=== PATIENT | female | born 1980 | race Caucasian/White ===

== ENCOUNTER 2016-04-27 08:32 | Outpatient (CLI) | payer OTHER ==
[~2016-04-27] VITALS: Ht 167.6 cm; Wt 135.9 kg
[2016-04-27 09:22] VITALS: BP 115/79
[2016-04-30] MEDS ORDERED: PREN1TAB60 PO (22:09)
[2016-04-30] MEDS ORDERED: LEVO200T5 PO (22:09)
[2016-04-30] MEDS ORDERED: METF10002 PO (23:34)
[2016-04-30] MEDS ORDERED: iron PO (23:34)
[2016-05-04] MEDS ORDERED: IBUP-1222 PO (08:35)
[2016-05-04] MEDS ORDERED: OXYC-302 PO (08:37)
[2016-05-04] MEDS ORDERED: DOCU-30 PO (08:39)
== END 2016-04-27 10:00 | disposition home or self-care (01) ==
LOC: LDOP 08:32 → EDSTATUS 04-30 08:32
PROVIDERS: ATTEND Obstetrics & Gynecology
DX: O36.8130 Decreased fetal movements, third trimester, not applicable or unspecified (principal); O99.283 Endocrine, nutritional and metabolic diseases complicating pregnancy, third trimester; E03.9 Hypothyroidism, unspecified; Z3A.39 39 weeks gestation of pregnancy
CPT/HCPCS: 59025; 99201; G0463

== ENCOUNTER → 2016-08-09 | Outpatient (CLI) | payer OTHER ==
[~2016-08-09] MED LIST: DOCU-30 PO; IBUP-1222 PO; LEVO200T5 PO; METF10002 PO; OXYC-302 PO; PREN1TAB60 PO; iron PO
== END | disposition home or self-care (01) ==
LOC: CVU 14:49
PROVIDERS: ATTEND Nurse Practitioner Primary Care
DX: I08.1 Rheumatic disorders of both mitral and tricuspid valves (principal); I37.1 Nonrheumatic pulmonary valve insufficiency; E03.9 Hypothyroidism, unspecified; E55.9 Vitamin D deficiency, unspecified
CPT/HCPCS: 93306

== ENCOUNTER 2016-08-16 11:15 | Inpatient (IN) | payer OTHER ==
[~2016-08-16] VITALS: Ht 167.6 cm; Wt 136.5 kg
[2016-08-16] MEDS ORDERED: RANI150T4 PO (11:28)
[2016-08-16] MEDS ORDERED: SODIUM CHLORIDE 0.9% 1,000ML IVBOLUS ONE ×2 (12:30→14:30)
[2016-08-16] MEDS ORDERED: SODIUM CHLORIDE FLUSH 10ML SYR IVF ONE (12:30)
[2016-08-16 12:56] LABS: BLOOD UREA NITROGEN 12 mg/dL (7-18)
[2016-08-16 12:57] LABS: ASPARTATE AMINO TRANSFERASE 15 U/L (15-37)
[2016-08-16] MEDS ORDERED: CLINDAMYCIN PMX 900MG/50ML 50 ML IV ONE (14:30)
[2016-08-16] MEDS ORDERED: CLINDAMYCIN PMX 900MG/50ML 50 ML ONE (15:01)
[2016-08-16] MEDS ORDERED: HYDROcodone/APAP 5/325 TABLET PO PRN (17:00)
[2016-08-16] MEDS ORDERED: MORPHINE SULFATE 4 MG/ML, 1ML IVPush PRN (17:00)
[2016-08-16] MEDS ORDERED: ACETAMINOPHEN 325 MG TABLET PO PRN (17:00)
[2016-08-16] MEDS ORDERED: TEMAZEPAM 15 MG CAPSULE PO PRN (17:00)
[2016-08-16] MEDS ORDERED: ENALAPRILAT 1.25 MG/ML, 2ML IVPush PRN (17:00)
[2016-08-16] MEDS ORDERED: ONDANSETRON 2MG/ML, 2ML IVPush PRN (17:00)
[2016-08-16] MEDS: SODIUM CHLORIDE 0.9% 1,000 ML IV SCH ×2 (19:53→22:34)
[2016-08-16] MEDS: CEFAZOLIN PMX 1GM/50ML 50 ML IV SCH (19:53)
[2016-08-16] MEDS: KETOROLAC 30 MG/1 ML IVPush SCH ×2 (20:07→23:00)
[2016-08-16 20:59] VITALS: BP 143/89
[2016-08-16 22:57] VITALS: BP 108/71
[2016-08-17] MEDS: CEFAZOLIN PMX 1GM/50ML 50 ML IV SCH ×4 (00:35→20:35)
[2016-08-17] MEDS: KETOROLAC 30 MG/1 ML IVPush SCH ×4 (00:35→14:00)
[2016-08-17] MEDS: SODIUM CHLORIDE 0.9% 1,000 ML IV SCH ×2 (03:55→14:12)
[2016-08-17 04:00] VITALS: BP 129/83
[2016-08-17 05:54] LABS: BLOOD UREA NITROGEN 11 mg/dL (7-18)
[2016-08-17 06:06] LABS: ASPARTATE AMINO TRANSFERASE 10 U/L (15-37)
[2016-08-17 07:50] VITALS: BP 122/81
[2016-08-17] MEDS ORDERED: LEVOTHYROXINE 200 MCG TABLET PO SCH (09:00)
[2016-08-17] MEDS ORDERED: POTASSIUM CHLORIDE 40 MEQ in SODIUM CHLORIDE 0.9% 500 ML IV ONE (10:30)
[2016-08-17 13:05] VITALS: BP 121/76
[2016-08-17] MEDS: KETOROLAC 30 MG/1 ML IVPush PRN ×2 (14:39→20:35)
[2016-08-17 19:25] VITALS: BP 133/88
[2016-08-17] MEDS: LEVOTHYROXINE 175 MCG TABLET PO SCH (20:35)
[2016-08-18 02:18] VITALS: BP 130/87
[2016-08-18] MEDS: KETOROLAC 30 MG/1 ML IVPush PRN ×4 (02:26→22:11)
[2016-08-18] MEDS: CEFAZOLIN PMX 1GM/50ML 50 ML IV SCH ×3 (04:50→20:06)
[2016-08-18 05:53] LABS: BLOOD UREA NITROGEN 12 mg/dL (7-18)
[2016-08-18 07:16] VITALS: BP 136/90
[2016-08-18] MEDS ORDERED: LEVOTHYROXINE 200 MCG TABLET PO SCH (09:00)
[2016-08-18] MEDS: SODIUM CHLORIDE 0.9% 1,000 ML IV SCH ×3 (09:00→16:13)
[2016-08-18 13:59] VITALS: BP 137/87
[2016-08-18 19:11] VITALS: BP 138/90
[2016-08-18] MEDS: LEVOTHYROXINE 175 MCG TABLET PO SCH (20:06)
[2016-08-19 01:56] VITALS: BP 133/87
[2016-08-19] MEDS: CEFAZOLIN PMX 1GM/50ML 50 ML IV SCH ×3 (05:22→20:35)
[2016-08-19] MEDS: KETOROLAC 30 MG/1 ML IVPush PRN ×2 (08:09→22:32)
[2016-08-19 08:41] VITALS: BP 133/92
[2016-08-19] MEDS: SODIUM CHLORIDE 0.9% 1,000 ML IV SCH ×3 (10:47→19:28)
[2016-08-19 14:32] VITALS: BP 144/94
[2016-08-19 15:14] VITALS: BP 157/105
[2016-08-19 17:30] VITALS: BP 131/87
[2016-08-19 20:25] VITALS: BP 149/99
[2016-08-19] MEDS: LEVOTHYROXINE 175 MCG TABLET PO SCH (20:35)
[2016-08-20 02:31] VITALS: BP 142/92
[2016-08-20] MEDS: SODIUM CHLORIDE 0.9% 1,000 ML IV SCH (03:20)
[2016-08-20] MEDS: CEFAZOLIN PMX 1GM/50ML 50 ML IV SCH (04:20)
[2016-08-20 07:19] VITALS: BP 141/95
[2016-08-20] MEDS ORDERED: AMOX1TAB64 PO (08:18)
[2016-08-20] MEDS ORDERED: LEVO175T2 PO (08:18)
[2016-08-20] MEDS ORDERED: TRAM-28 PO (08:21)
[2016-08-20] MEDS ORDERED: LACT1CAP24 PO (08:39)
[2016-08-20] MEDS ORDERED: CLIN300C93 PO (08:39)
[2016-08-20] MEDS ORDERED: LACTOBACILLUS 1GM/ PACKET PO SCH (09:00)
[2016-08-20] MEDS ORDERED: CLINDAMYCIN 300 MG CAPSULE PO SCH (09:00)
[2016-08-20] MEDS ORDERED: AMOXICILLIN/CLAV 875-125MG TABLET PO SCH (09:00)
== END 2016-08-20 12:22 | disposition home or self-care (01) | DRG 872 ==
LOC: ED 16:05 → EDIP 16:37 → SUATTDRO 16:47 → 3NE 18:24 → 4WST 23:20 → DCLOUNGE 08-20 11:19
PROVIDERS: ATTEND Internal Medicine
DX: A41.9 Sepsis, unspecified organism (principal); Z68.42 Body mass index [BMI] 45.0-49.9, adult; N61.0 Mastitis without abscess; E89.0 Postprocedural hypothyroidism; E66.01 Morbid (severe) obesity due to excess calories; E87.6 Hypokalemia; R73.02 Impaired glucose tolerance (oral); Z85.850 Personal history of malignant neoplasm of thyroid; Z88.2 Allergy status to sulfonamides
CPT/HCPCS: 36415; 76642; 80048; 80053; 83036; 83605; 83735; 84100; 84443; 85025; 87040; 87529; 93005; 96360; 96361; J0690; J1885; J2405; J3480; J7030; J7040

== ENCOUNTER → 2018-03-04 | Outpatient (CLI) | payer OTHER ==
[~2018-03-04] VITALS: Ht 167.6 cm; Wt 143.2 kg
[~2018-03-04] MED LIST changes: +AMOX1TAB64 PO; +CLIN300C8 PO; +DOCU-131 PO; -DOCU-30 PO; +LACT1CAP24 PO; +LEVO175T2 PO; +LEVO300T4 PO; +RANI150T4 PO; +TRAM-47 PO
[2018-03-04 17:33] VITALS: BP 124/73
[2018-03-04 17:44] LABS: MICROSCOPIC INDICATED
== END | disposition home or self-care (01) ==
LOC: LDOP 16:36
PROVIDERS: ATTEND Obstetrics & Gynecology
DX: Z36.2 Encounter for other antenatal screening follow-up (principal); Z3A.34 34 weeks gestation of pregnancy
CPT/HCPCS: 59025; 81001; 87086; 99211; G0463

== ENCOUNTER 2018-04-02 05:33 | Inpatient (IN) | payer OTHER ==
[~2018-04-02] VITALS: Ht 167.6 cm; Wt 144.5 kg
[2018-04-02] MEDS ORDERED: OXYTOCIN 30U/ 0.9% NaCL 500ML 500 ML IV SCH (05:34)
[2018-04-02] MEDS ORDERED: LACTATED RINGERS 1,000 ML IV SCH ×2 (05:34→06:00)
[2018-04-02] MEDS ORDERED: ONDANSETRON 2MG/ML, 2ML IVPush ONE (06:00)
[2018-04-02] MEDS ORDERED: ONDANSETRON 2MG/ML, 2ML ONE ×2 (06:00→07:36)
[2018-04-02] MEDS ORDERED: CALCIUM CARBONATE 500 MG TAB.CHEW PO PRN ×2 (06:00→09:00)
[2018-04-02] MEDS ORDERED: METOCLOPRAMIDE 5 MG/ML, 2ML IV ONE (06:00)
[2018-04-02] MEDS ORDERED: LACTATED RINGERS 1,000 ML IVBOLUS ONE (06:00)
[2018-04-02] MEDS ORDERED: SODIUM CITRATE/CITRIC ACID 30 ML UDC PO ONE (06:00)
[2018-04-02 06:08] LABS: BASOPHILS # (AUTO) 0.06 x10^3/uL (0-0.1); BASOPHILS % (AUTO) 1 % (0-1); EOSINOPHILS # (AUTO) 0.14 x10^3/uL (0-0.4); EOSINOPHILS % (AUTO) 2 % (1-7); LYMPHOCYTES # (AUTO) 2.26 x10^3/uL (1-3.4); LYMPHOCYTES % (AUTO) 31 % (22-44); MD NO; MEAN CORPUSCULAR HEMOGLOBIN 25.1 pg (27.0-34.8); MEAN CORPUSCULAR HGB CONC 32.8 g/dL (32.4-35.8); MEAN CORPUSCULAR VOLUME 76.5 fL (80-100); MEAN PLATELET VOLUME 9.3 fL (7.4-10.4); MONOCYTES # (AUTO) 0.51 x10^3/uL (0.2-0.8); MONOCYTES % (AUTO) 7 % (2-9); NEUTROPHILS # (AUTO) 4.36 x10^3/uL (1.8-6.8); NEUTROPHILS % (AUTO) 60 % (42-75); PLATELET COUNT 208 x10^3/uL (130-400); RED CELL DISTRIBUTION WIDTH 17.2 % (9.6-15.2)
[2018-04-02] MEDS ORDERED: OXYTOCIN 30U/ 0.9% NaCL 500ML 500 ML ONE (06:35)
[2018-04-02] MEDS ORDERED: ONDANSETRON 2MG/ML, 2ML IVPush PRN ×2 (07:30)
[2018-04-02] MEDS ORDERED: ALBUTEROL/IPRATROPIUM 2.5MG/0.5MG, 3 ML NPPB PRN (07:30)
[2018-04-02] MEDS ORDERED: HYDROmorphone 2 MG/ML, 1ML IVPush PRN ×2 (07:30)
[2018-04-02] MEDS ORDERED: OXYcodone 5 MG/5 ML ORAL.SOL UDC PO PRN ×2 (07:30)
[2018-04-02] MEDS ORDERED: PROMETHAZINE 25 MG/ML, 1ML IV PRN ×2 (07:30)
[2018-04-02] MEDS ORDERED: HYDROcodone/APAP 7.5-325MG/15ML UDC PO PRN ×2 (07:30)
[2018-04-02] MEDS ORDERED: METOCLOPRAMIDE 5 MG/ML, 2ML IV PRN ×2 (07:30→09:00)
[2018-04-02] MEDS ORDERED: hydrALAzine 20 MG/ML, 1ML IV PRN ×2 (07:30)
[2018-04-02] MEDS ORDERED: MIDAZOLAM 1 MG/ML, 2ML IV PRN (07:30)
[2018-04-02] MEDS ORDERED: ALBUTEROL SULFATE 2.5 MG/3 ML NPPB PRN (07:30)
[2018-04-02] MEDS ORDERED: MEPERIDINE/PF 25MG/0.5ML IVPush PRN ×2 (07:30)
[2018-04-02] MEDS ORDERED: EPHEDRINE 50 MG/ML, 1ML IVPush PRN ×2 (07:30)
[2018-04-02] MEDS ORDERED: LABETALOL 5MG/ML, 20ML IV PRN ×2 (07:30)
[2018-04-02] MEDS ORDERED: FENTANYL PF 100 MCG/2ML IV PRN ×2 (07:30)
[2018-04-02] MEDS ORDERED: DEXAMETHASONE 4 MG/ML, 1ML ONE (07:36)
[2018-04-02] MEDS ORDERED: OXYTOCIN 10 UNITS/ML, 1ML ONE (07:36)
[2018-04-02] MEDS ORDERED: PHENYLEPHRINE 10 MG/ML ONE (07:36)
[2018-04-02] MEDS ORDERED: FENTANYL PF 100 MCG/2ML ONE (07:36)
[2018-04-02] MEDS ORDERED: EPHEDRINE 50 MG/ML, 1ML ONE (07:36)
[2018-04-02] MEDS: LACTATED RINGERS 1,000 ML IV SCH ×4 (08:54→19:20)
[2018-04-02] MEDS ORDERED: METHYLERGONOVINE 0.2 MG/ML IM PRN (09:00)
[2018-04-02] MEDS ORDERED: MEASLES,MUMPS&RUBELLA VACC/PF 0.5 ML SQ-VACC PRN (09:00)
[2018-04-02] MEDS ORDERED: ACETAMINOPHEN 325 MG TABLET PO PRN ×3 (09:00)
[2018-04-02] MEDS ORDERED: ONDANSETRON 2MG/ML, 2ML IV PRN (09:00)
[2018-04-02] MEDS ORDERED: OXYcodone/APAP 5/325MG TABLET PO PRN (09:00)
[2018-04-02] MEDS ORDERED: IBUPROFEN 600 MG TABLET PO PRN (09:00)
[2018-04-02] MEDS ORDERED: BISACODYL 10 MG SUPP PR PRN (09:00)
[2018-04-02] MEDS ORDERED: GLYCERIN ADULT SUPP PR PRN (09:00)
[2018-04-02] MEDS ORDERED: DIPH,PERTUSS(ACELL),TET VAC/PF NC IM-VACC PRN (09:00)
[2018-04-02] MEDS: PRENATAL VIT/IRON/FA 1 EACH TABLET PO SCH (09:00)
[2018-04-02] MEDS ORDERED: MISOPROSTOL 200 MCG TABLET PR PRN (09:00)
[2018-04-02] MEDS ORDERED: MEPERIDINE/PF 50 MG/ML IM PRN (09:00)
[2018-04-02] MEDS ORDERED: CARBOPROST TROMETHAMINE 250 MCG/ML, 1ML IM PRN (09:00)
[2018-04-02] MEDS: OXYTOCIN 30U/ 0.9% NaCL 500ML 500 ML IV SCH ×2 (09:12→18:54)
[2018-04-02 11:00] VITALS: BP 121/78
[2018-04-02] MEDS: OXYcodone/APAP 5/325MG TABLET PO PRN ×3 (12:09→21:04)
[2018-04-02] MEDS: SIMETHICONE 80 MG CHEW TAB PO PRN ×2 (12:09→21:09)
[2018-04-02] MEDS: KETOROLAC 30 MG/1 ML IV SCH ×3 (14:38→21:00)
[2018-04-02 15:00] VITALS: BP 116/77
[2018-04-02 17:03] LABS: BASOPHILS # (AUTO) 0.02 x10^3/uL (0-0.1); BASOPHILS % (AUTO) 0 % (0-1); EOSINOPHILS # (AUTO) 0.01 x10^3/uL (0-0.4); EOSINOPHILS % (AUTO) 0 % (1-7); LYMPHOCYTES # (AUTO) 1.32 x10^3/uL (1-3.4); LYMPHOCYTES % (AUTO) 13 % (22-44); MD NO; MEAN CORPUSCULAR HGB CONC 32.7 g/dL (32.4-35.8); MEAN CORPUSCULAR VOLUME 76.5 fL (80-100); MEAN PLATELET VOLUME 9.3 fL (7.4-10.4); MONOCYTES # (AUTO) 0.63 x10^3/uL (0.2-0.8); MONOCYTES % (AUTO) 6 % (2-9); NEUTROPHILS # (AUTO) 7.97 x10^3/uL (1.8-6.8); NEUTROPHILS % (AUTO) 80 % (42-75); PLATELET COUNT 230 x10^3/uL (130-400); RED BLOOD COUNT 4.32 x10^6/uL (3.82-5.3); RED CELL DISTRIBUTION WIDTH 16.8 % (9.6-15.2)
[2018-04-02 19:50] VITALS: BP 103/70
[2018-04-02] MEDS: DOCUSATE 100 MG CAPSULE PO PRN (21:04)
[2018-04-02] MEDS: LEVOTHYROXINE 200 MCG TABLET PO SCH (21:05)
[2018-04-03 00:15] VITALS: BP 104/70
[2018-04-03] MEDS: LACTATED RINGERS 1,000 ML IV SCH ×5 (00:54→16:54)
[2018-04-03] MEDS: KETOROLAC 30 MG/1 ML IV SCH ×4 (02:34→21:37)
[2018-04-03] MEDS: OXYcodone/APAP 5/325MG TABLET PO PRN ×4 (02:34→21:37)
[2018-04-03] MEDS: OXYTOCIN 30U/ 0.9% NaCL 500ML 500 ML IV SCH ×2 (04:54→14:54)
[2018-04-03 05:00] VITALS: BP 111/77
[2018-04-03] MEDS ORDERED: LEVOTHYROXINE 200 MCG TABLET PO SCH (06:00)
[2018-04-03] MEDS: SIMETHICONE 80 MG CHEW TAB PO PRN ×3 (06:45→21:37)
[2018-04-03 07:40] VITALS: BP 112/72
[2018-04-03] MEDS: DOCUSATE 100 MG CAPSULE PO PRN ×2 (09:11→21:37)
[2018-04-03] MEDS: PRENATAL VIT/IRON/FA 1 EACH TABLET PO SCH (09:11)
[2018-04-03 20:00] VITALS: BP 124/79
[2018-04-03] MEDS: LEVOTHYROXINE 200 MCG TABLET PO SCH (21:37)
[2018-04-04] MEDS: LACTATED RINGERS 1,000 ML IV SCH ×2 (00:54)
[2018-04-04] MEDS: OXYTOCIN 30U/ 0.9% NaCL 500ML 500 ML IV SCH (00:54)
[2018-04-04] MEDS: OXYcodone/APAP 5/325MG TABLET PO PRN ×2 (03:37→09:38)
[2018-04-04] MEDS: KETOROLAC 30 MG/1 ML IV SCH (03:37)
[2018-04-04] MEDS: SIMETHICONE 80 MG CHEW TAB PO PRN ×2 (03:37→09:38)
[2018-04-04] MEDS ORDERED: OXYC-302 PO (07:15)
[2018-04-04] MEDS ORDERED: IBUP-1222 PO (07:15)
[2018-04-04 08:45] VITALS: BP 128/77
[2018-04-04] MEDS: DOCUSATE 100 MG CAPSULE PO PRN (09:38)
[2018-04-04] MEDS: PRENATAL VIT/IRON/FA 1 EACH TABLET PO SCH (09:38)
== END 2018-04-04 15:09 | disposition home or self-care (01) | DRG 788 ==
LOC: LDIP 05:33 → 2NW 10:56
PROVIDERS: ADMIT Obstetrics & Gynecology; ATTEND Obstetrics & Gynecology
PROC: 10D00Z1 Extraction of Products of Conception, Low, Open Approach (ICD-10-PCS; principal; 2018-04-02)
DX: O34.211 Maternal care for low transverse scar from previous cesarean delivery (principal); E89.0 Postprocedural hypothyroidism; J45.909 Unspecified asthma, uncomplicated; O99.284 Endocrine, nutritional and metabolic diseases complicating childbirth; D64.9 Anemia, unspecified; E66.01 Morbid (severe) obesity due to excess calories; O32.8XX0 Maternal care for other malpresentation of fetus, not applicable or unspecified; O13.4 Gestational [pregnancy-induced] hypertension without significant proteinuria, complicating childbirth; O99.52 Diseases of the respiratory system complicating childbirth; O99.02 Anemia complicating childbirth; Z37.0 Single live birth; Z3A.39 39 weeks gestation of pregnancy; Z80.3 Family history of malignant neoplasm of breast; Z82.49 Family history of ischemic heart disease and other diseases of the circulatory system; Z83.3 Family history of diabetes mellitus; Z85.850 Personal history of malignant neoplasm of thyroid; Z88.2 Allergy status to sulfonamides; Z88.1 Allergy status to other antibiotic agents
CPT/HCPCS: 36415; 85025; 86850; 86900; G0378; J1100; J1885; J2405; J3010; J2370; J2590; J2765; J7120

== ENCOUNTER 2018-04-10 11:00 | Emergency (ER) | payer OTHER ==
[~2018-04-10] VITALS: Ht 167.6 cm; Wt 147.0 kg
--- NOTE | 2018-04-10 12:16 | NUR ---
PT AMBULATED TO XRAY.
[2018-04-10 12:27] LABS: MD NO
[2018-04-10 12:28] LABS: BASOPHILS # (AUTO) 0.03 x10^3/uL (0-0.1); BASOPHILS % (AUTO) 1 % (0-1); EOSINOPHILS # (AUTO) 0.43 x10^3/uL (0-0.4); EOSINOPHILS % (AUTO) 7 % (1-7); LYMPHOCYTES # (AUTO) 1.63 x10^3/uL (1-3.4); LYMPHOCYTES % (AUTO) 27 % (22-44); MEAN CORPUSCULAR HEMOGLOBIN 24.5 pg (27.0-34.8); MEAN CORPUSCULAR HGB CONC 30.9 g/dL (32.4-35.8); MEAN CORPUSCULAR VOLUME 79.3 fL (80-100); MONOCYTES # (AUTO) 0.37 x10^3/uL (0.2-0.8); MONOCYTES % (AUTO) 6 % (2-9); NEUTROPHILS # (AUTO) 3.62 x10^3/uL (1.8-6.8); NEUTROPHILS % (AUTO) 60 % (42-75); PLATELET COUNT 323 x10^3/uL (130-400); RED BLOOD COUNT 4.24 x10^6/uL (3.82-5.3); RED CELL DISTRIBUTION WIDTH 17.2 % (9.6-15.2)
[2018-04-10 12:32] LABS: ANION GAP 7 mmol/L (5-15); CALCIUM 8.2 mg/dL (8.5-10.1); CHLORIDE 107 mmol/L (98-107)
[2018-04-10 12:37] LABS: ALANINE AMINOTRANSFERASE 26 U/L (12-78); ALKALINE PHOSPHATASE 87 U/L (45-117); BILIRUBIN,TOTAL 0.5 mg/dL (0.2-1.0); CREATININE 0.99 mg/dL (0.55-1.02)
--- NOTE | 2018-04-10 13:10 | NUR ---
ALL RESULTS BACK, PT FOR RECHECK.
[2018-04-10 13:22] VITALS: BP 122/64
== END 2018-04-10 13:25 | disposition home or self-care (01) ==
LOC: ED 13:10
DX: J98.01 Acute bronchospasm (principal); I10 Essential (primary) hypertension; Z98.890 Other specified postprocedural states
CPT/HCPCS: 36415; 71046; 80053; 83880; 85025; 93005; 99284